=== PATIENT | female | born 1950 | race Caucasian/White ===

== ENCOUNTER 2017-03-28 09:55 | Outpatient (CLI) | payer OTHER | END 2017-03-28 20:10 | disposition home or self-care (01) | LOC: SMA 09:55 | PROVIDERS: ATTEND Family Medicine | DX: Z12.31 Encounter for screening mammogram for malignant neoplasm of breast (principal) | CPT/HCPCS: 77067 ==

== ENCOUNTER 2018-05-01 09:20 | Outpatient (CLI) | payer OTHER | END 2018-05-01 21:07 | disposition home or self-care (01) | LOC: SMA 09:20 | PROVIDERS: ATTEND Family Medicine | DX: Z12.31 Encounter for screening mammogram for malignant neoplasm of breast (principal) | CPT/HCPCS: 77067 ==

== ENCOUNTER 2022-08-06 06:12 | Day surgery (SDC) | payer OTHER ==
[~2022-08-06] VITALS: Ht 170.2 cm; Wt 108.9 kg
[2022-08-06] MEDS ORDERED: NS 1000 ML IV.SOLN IV ONE (07:42)
[2022-08-06] MEDS ORDERED: DEXAMETHASONE SOD PHOSPHATE 4 MG/ML VIAL ONE (07:42)
[2022-08-06] MEDS ORDERED: ONDANSETRON HCL 4 MG/2 ML VIAL ONE (07:42)
[2022-08-06] MEDS ORDERED: PROPOFOL 200MG/ 20ML VIAL (DIPRIVAN) IV ONE (07:42)
[2022-08-06] MEDS ORDERED: fentaNYL CITRATE/PF 100 MCG/2 ML AMP ONE (07:42)
[2022-08-06] MEDS ORDERED: NS IRRIG SOLN 1000 ML IR ONE (07:42)
[2022-08-06] MEDS ORDERED: NS IRRIG SOLN 5000 ML IR ONE (07:42)
[2022-08-06] MEDS ORDERED: ISOFLURANE 15 MIN GAS INH ONE (07:42)
[2022-08-06] MEDS ORDERED: ONDANSETRON HCL 4 MG/2 ML VIAL IVP PRN (08:00)
[2022-08-06] MEDS ORDERED: OXYCODONE/ACETAMINOPHEN 5-325 TABLET PO PRN ×2 (08:00)
[2022-08-06] MEDS ORDERED: HYDROcodone/ACETAMIN 5-325 MG TAB (NORCO/ VICODIN) PO PRN (08:00)
[2022-08-06 11:14] VITALS: BP_SYST 135
== END 2022-08-06 10:15 | disposition home or self-care (01) ==
LOC: SDS 06:12 → SMU 06:13 → SDS 10:15
PROVIDERS: ATTEND Specialist
DX: N95.0 Postmenopausal bleeding (principal); N84.0 Polyp of corpus uteri; N81.10 Cystocele, unspecified; N81.6 Rectocele
CPT/HCPCS: 87081; 58560; C1819; J1100; J2405; J2704; J3010; J7030

== ENCOUNTER 2022-09-29 06:57 | Day surgery (SDC) | payer OTHER ==
[~2022-09-29] VITALS: Ht 170.2 cm; Wt 108.9 kg
[2022-09-29] MEDS ORDERED: CEFAZOLIN 2 GM IVPB PREMIX 50 ML IV ONE (07:00)
[2022-09-29] MEDS ORDERED: DEXAMETHASONE SOD PHOSPHATE 4 MG/ML VIAL ONE (08:35)
[2022-09-29] MEDS ORDERED: fentaNYL CITRATE/PF 100 MCG/2 ML AMP ONE (08:35)
[2022-09-29] MEDS ORDERED: FUROSEMIDE 40 MG/4 ML VIAL ONE (08:35)
[2022-09-29] MEDS ORDERED: PROPOFOL 200MG/ 20ML VIAL (DIPRIVAN) IV ONE (08:35)
[2022-09-29] MEDS ORDERED: SEVOFLURANE 15 MIN GAS INH ONE (08:35)
[2022-09-29] MEDS ORDERED: LIDOCAINE/EPI 1% 1:100000 20 ML VIAL ONE (08:35)
[2022-09-29] MEDS ORDERED: ROCURONIUM BROMIDE 10 MG/ML (ZEMURON) ONE (08:35)
[2022-09-29] MEDS ORDERED: hydrALAZINE HCL 20 MG/ML VIAL ONE (08:35)
[2022-09-29] MEDS ORDERED: SUCCINYLCHOLINE CHLORIDE 20 MG/ML(QUELICIN) ONE (08:35)
[2022-09-29] MEDS ORDERED: ONDANSETRON HCL 4 MG/2 ML VIAL ONE (08:35)
[2022-09-29] MEDS ORDERED: SUGAMMADEX SODIUM 200 MG/2 ML VIAL IV ONE (08:35)
[2022-09-29] MEDS ORDERED: NS 1000 ML IV.SOLN IV ONE (08:35)
[2022-09-29] MEDS ORDERED: LR 1,000 ML IV.SOLN IV ONE (08:35)
[2022-09-29] MEDS ORDERED: ONDANSETRON HCL 4 MG/2 ML VIAL IVP PRN ×2 (09:15→10:45)
[2022-09-29] MEDS ORDERED: MEPERIDINE HCL/PF 25 MG/ML DISP.SYRIN IVP PRN (09:15)
[2022-09-29] MEDS ORDERED: KETOROLAC TROMETHAMINE 30 MG VIAL IVP PRN (09:15)
[2022-09-29] MEDS ORDERED: LR 1,000 ML IV SCH (09:15)
[2022-09-29] MEDS ORDERED: HYDROmorphone 1 MG/ML INJ. CARTRIDGE IVP PRN (09:15)
[2022-09-29] MEDS ORDERED: METOCLOPRAMIDE HCL 10 MG/2 ML VIAL IVP PRN (09:15)
[2022-09-29] MEDS ORDERED: HYDR-3917 PO (10:39)
[2022-09-29] MEDS ORDERED: IBUP-1969 PO (10:43)
[2022-09-29] MEDS ORDERED: OXYCODONE/ACETAMINOPHEN 5-325 TABLET PO PRN ×2 (10:45)
[2022-09-29] MEDS ORDERED: HYDROcodone/ACETAMIN 5-325 MG TAB (NORCO/ VICODIN) PO PRN (10:45)
[2022-09-29 13:44] VITALS: O2SAT 96
[2022-09-29 16:31] VITALS: BP_SYST 109; PULSE 55; RESP 17
== END 2022-09-29 16:00 | disposition home or self-care (01) ==
LOC: SDS 06:57 → SMU 07:00 → SDS 16:00
PROVIDERS: ATTEND Specialist
DX: N95.0 Postmenopausal bleeding (principal); N72 Inflammatory disease of cervix uteri; N85.02 Endometrial intraepithelial neoplasia [EIN]; R97.1 Elevated cancer antigen 125 [CA 125]; I10 Essential (primary) hypertension; E78.00 Pure hypercholesterolemia, unspecified; E66.9 Obesity, unspecified; Z68.37 Body mass index [BMI] 37.0-37.9, adult; Z96.652 Presence of left artificial knee joint; Z90.722 Acquired absence of ovaries, bilateral; Z98.890 Other specified postprocedural states; Z79.899 Other long term (current) drug therapy
CPT/HCPCS: 87081; 58550; 88307; J3490; J0690; J1100; J1940; J0360; J2405; J2704; J0330; J3010; J7120; J7030; C1727